=== PATIENT | female | born 1980 ===

== ENCOUNTER 2017-06-27 18:47 | Emergency (ER) | payer MEDICAID, OTHER ==
[~2017-06-27] VITALS: Ht 162.6 cm; Wt 68.0 kg
[~2017-06-27 18:47] MED LIST: ASPI81 PO; CYCL5TAB PO; [UNRECOGNIZED DRUG - CODE] PO
[2017-06-27 18:48] VITALS: BP 126/76; PULSE 89; RESP 18; TEMP 98.7; O2SAT 99
--- NOTE | 2017-06-27 19:55 | PD ---
HPI Chief Complaint: Abdominal Pain Time Seen by Provider: 18:52 Travel History International Travel<30 days: No Contact w/Intl Traveler<30days: No Traveled to known affect area: No History of Present Illness HPI Patient is a 37-year-old female presenting to the emergency department for evaluation of RLQ abdominal pain. Patient states her pain started a few months ago, it is intermittent. There are no alleviating or exacerbating factors with pain occurs. She states it has been increasing in frequency recently. Pt was prescribed ketorolac for the pain by her primary doctor, she states it is not controlling her pain. She states she was referred to an [facility] to be evaluated for this. She denies any N/V, no change in bowel habits, no fevers, chills, headache, chest pain or shortness of breath. She currently denies any vaginal discharge or bleeding as well. PFSH Past Medical History Cardiovascular Problems: Yes (? heart valve ) ?: Not Past Surgical History Hysterectomy: Yes Social History Alcohol Use: No Tobacco Use: No Substance Use: No Allergies-Medications (Allergen,Severity, Reaction): Coded Allergies: oseltamivir (Unverified Allergy, Severe, 02/04/17) shrimp (Unverified Allergy, Severe, 02/04/17) Reported Meds & Prescriptions Reported Meds & Active Scripts Active Reported Naproxen Dr (Naproxen) 500 Mg Tab 500 Mg PO DAILY Flexeril (Cyclobenzaprine HCl) 5 Mg Tab 5 Mg PO DAILY Aspirin 81 Mg Tab 81 Mg PO DAILY Review of Systems Except as stated in HPI: all other systems reviewed are Neg Cardiovascular: No: Chest Pain or Discomfort Respiratory: No: Shortness of Breath Gastrointestinal: Positive: Abdominal Pain, No: Nausea, Vomiting Genitourinary: No: Dysuria, Pelvic Pain, Discharge, Vaginal Bleeding Musculoskeletal: No: Myalgias Physical Exam Narrative GENERAL: Well-developed, well-nourished, well-appearing female. SKIN: Warm and dry. HEAD: Normocephalic. EYES: No scleral icterus. No injection or drainage. NECK: Supple, trachea midline. No JVD or lymphadenopathy. CARDIOVASCULAR: Regular rate RESPIRATORY: No accessory muscle use. Data Data Last Documented VS Vital Signs Date Time Temp Pulse Resp B/P (MAP) Pulse Ox O2 Delivery O2 Flow Rate FiO2 06/27/17 18:48 98.7 89 18 126/76 (93) 99 Room Air MDM Medical Decision Making Medical Screen Exam Complete: Yes Emergency Medical Condition: Yes Interpretation(s) Vital Signs Date Time Temp Pulse Resp B/P (MAP) Pulse Ox O2 Delivery O2 Flow Rate FiO2 06/27/17 18:48 98.7 89 18 126/76 (93) 99 Room Air Differential Diagnosis Ovarian cyst versus diverticulitis versus irritable bowel versus muscle strain versus less likely appendicitis versus other Narrative Course Patient is a 37-year-old female presenting with right lower quadrant abdominal pain that is ongoing for several months. She has been referred to [facility] through her primary doctor for further evaluation. She presents today because the pain returned and it felt worse. Pain appears chronic in nature. Patient' s vital signs are stable, she was initially seen in triage. Patient is awaiting bed placement. Patient presented back to triage, she stated that she did not want to wait as the wait would likely be too long and she had to work the next day. Patient Payam Ritchie has decided to leave the hospital against medical advice. This patient has the capacity to refuse care and understands the risks of leaving, including permanent disability and/or , and has had an opportunity to ask questions about her condition. The patient has been informed that she may return for care at any time, and follow up has been arranged/ advised. Diagnosis Primary Impression: Left against medical advice Amber Iqbal Jun 27, 2017 19:55
== END 2017-06-27 19:54 | disposition left against medical advice (07) ==
LOC: NED 18:47
DX: R10.31 Right lower quadrant pain (principal)
CPT/HCPCS: 99281